=== PATIENT | male | born 1970 | race Caucasian/White ===

== ENCOUNTER 2022-09-30 17:40 | Inpatient (IN) | payer OTHER ==
[2022-09-30 18:10] VITALS: BMI 29.6
[2022-09-30] MEDS ORDERED: chlordiazePOXIDE HCL 25 MG CAPSULE PO PRN (19:37)
[2022-09-30] MEDS ORDERED: chlordiazePOXIDE HCL 25 MG CAPSULE PO ONE (19:37)
[2022-09-30] MEDS ORDERED: POLYETHYLENE GLYCOL (HEALTHYLAX) 3350 17 GM PACKET PO PRN (20:03)
[2022-09-30] MEDS ORDERED: MAG HYDROX/AL HYDROX/SIMETH 30 ML UNIT-DOSE CUP PO PRN (20:03)
[2022-09-30] MEDS ORDERED: NALOXONE HCL (KLOXXADO) 8 MG SPRAY NS PRN (20:03)
[2022-09-30] MEDS ORDERED: MELATONIN 5 MG TABLETS PO PRN (20:03)
[2022-09-30] MEDS ORDERED: BENZOCAINE/MENTHOL (CHLORASEPTIC ) LOZENGE MM PRN (20:03)
[2022-09-30] MEDS ORDERED: LOPERAMIDE HCL 2 MG CAPSULE PO PRN (20:03)
[2022-09-30] MEDS ORDERED: NALOXONE HCL 0.4 MG/ML VIAL IM PRN (20:03)
[2022-09-30] MEDS ORDERED: DICYCLOMINE HCL 10 MG CAPSULE PO PRN (20:03)
[2022-09-30] MEDS ORDERED: BISMUTH SUBSALICYLATE 524 MG/30 ML PO PRN (20:03)
[2022-09-30] MEDS ORDERED: MAGNESIUM HYDROX 2400MG/30ML ORAL SUSPENSION 30 ML CUP PO PRN (20:03)
[2022-09-30] MEDS ORDERED: IBUPROFEN 400 MG TABLET (FP) PO PRN (20:03)
[2022-09-30] MEDS ORDERED: P-EPHED 60MG/TRIPROLIDI 2.5MG TABLET PO PRN (20:03)
[2022-09-30] MEDS ORDERED: ACETAMINOPHEN 325 MG TABLET (FP) PO PRN (20:03)
[2022-09-30] MEDS ORDERED: BENZONATATE 200 MG CAPSULE PO PRN (20:03)
[2022-09-30] MEDS ORDERED: ONDANSETRON *ODT* 4 MG TABLET SL PRN (20:03)
[2022-09-30] MEDS ORDERED: IBUPROFEN 600 MG TABLET (FP) PO PRN (20:03)
[2022-09-30] MEDS ORDERED: guaiFENesin 600 MG TABLET.ER (FP) PO PRN (20:03)
[2022-09-30] MEDS ORDERED: chlordiazePOXIDE HCL 25 MG CAPSULE ONE (20:10)
[2022-09-30] MEDS ORDERED: hydrOXYzine PAMOATE 25 MG CAPSULE (FP) PO ONE (21:07)
[2022-09-30] MEDS: hydrOXYzine PAMOATE 25 MG CAPSULE (FP) PO PRN (21:09)
[2022-09-30] MEDS ORDERED: THIAMINE HCL 100 MG TABLET (FP) PO SCH (22:00)
[2022-09-30] MEDS: chlordiazePOXIDE HCL 25 MG CAPSULE PO SCH (22:20)
[2022-09-30] MEDS: levETIRAcetam 250 MG TABLET PO SCH (22:20)
[2022-09-30] MEDS: METHOCARBAMOL 500 MG TABLET PO PRN (22:20)
[2022-10-01] MEDS: chlordiazePOXIDE HCL 25 MG CAPSULE PO SCH ×2 (05:27→10:09)
[2022-10-01] MEDS ORDERED: PRENATAL VITAMINS W/ FOLIC ACID TABLET (FP) PO SCH (10:00)
[2022-10-01] MEDS: hydrOXYzine PAMOATE 25 MG CAPSULE (FP) PO PRN (10:08)
[2022-10-01] MEDS: levETIRAcetam 250 MG TABLET PO SCH (10:08)
[2022-10-01 11:55] LABS: HEMATOCRIT 38.4 % (35.4-49); HEMOGLOBIN 13.1 GM/dL (11.7-16.9); MCH 32.7 pg (25.7-33.7); MEAN CELL VOLUME 96.1 fl (80-96); MEAN PLT VOLUME 8.4 fl (7.5-11.1); PLATELET COUNT 63 10^3/uL (134-434); RBC 3.99 M/mm3 (4.00-5.60); RDW 15.7 % (11.9-15.9); WHITE BLOOD COUNT 2.9 K/mm3 (4.0-10.0)
[2022-10-01 11:56] LABS: POTASSIUM 3.2 mmol/L (3.5-5.1)
[2022-10-01] MEDS ORDERED: POTASSIUM CHLORIDE ORAL LIQUID 20 MEQ/15 ML PO ONE (11:57)
[2022-10-01 11:58] LABS: ALBUMIN 3.8 g/dl (3.4-5.0)
[2022-10-01 11:59] LABS: BLOOD UREA NITROGEN 9.5 mg/dL (7-18)
[2022-10-01 12:02] LABS: CREATININE 0.8 mg/dL (0.55-1.3)
[2022-10-01 12:03] LABS: TOT PROT 6.6 g/dl (6.4-8.2)
[2022-10-01 12:04] LABS: BILIRUBIN,TOTAL 1.9 mg/dL (0.2-1)
[2022-10-01] MEDS: METHOCARBAMOL 500 MG TABLET PO PRN (12:32)
[2022-10-01 12:49] VITALS: BP 124/60; PULSE 65; RESP 20; TEMP 97.7
[2022-10-01] MEDS ORDERED: POTASSIUM CHLORIDE ORAL LIQUID 20 MEQ/15 ML PO SCH (22:00)
[2022-10-02] MEDS ORDERED: chlordiazePOXIDE HCL 25 MG CAPSULE PO SCH (05:00)
[2022-10-03] MEDS ORDERED: chlordiazePOXIDE HCL 10 MG CAPSULE PO PRN
[2022-10-03] MEDS ORDERED: chlordiazePOXIDE HCL 10 MG CAPSULE PO SCH (05:00)
[2022-10-04] MEDS ORDERED: chlordiazePOXIDE HCL 10 MG CAPSULE PO SCH (05:00)
[2022-10-05] MEDS ORDERED: chlordiazePOXIDE HCL 10 MG CAPSULE PO ONE (05:00)
== END 2022-10-01 14:43 | disposition left against medical advice (07) | DRG 770 ==
LOC: YASAS 17:40 → Y3N 20:45
PROVIDERS: ADMIT Allergy & Immunology; ATTEND Surgery
PROC: HZ2ZZZZ Detoxification Services for Substance Abuse Treatment (ICD-10-PCS; principal; 2022-09-30)
DX: F10.230 Alcohol dependence with withdrawal, uncomplicated (principal); D69.6 Thrombocytopenia, unspecified; D72.819 Decreased white blood cell count, unspecified; E87.6 Hypokalemia; R74.8 Abnormal levels of other serum enzymes
CPT/HCPCS: 36415; 80053; 85027; 86780; 87635; 87811

== ENCOUNTER 2022-10-11 19:04 | Inpatient (IN) | payer OTHER ==
[2022-10-11 19:38] VITALS: BMI 29.9
[2022-10-11] MEDS ORDERED: guaiFENesin 600 MG TABLET.ER (FP) PO PRN (19:57)
[2022-10-11] MEDS ORDERED: BISMUTH SUBSALICYLATE 524 MG/30 ML PO PRN (19:57)
[2022-10-11] MEDS ORDERED: ONDANSETRON *ODT* 4 MG TABLET SL PRN (19:57)
[2022-10-11] MEDS ORDERED: ACETAMINOPHEN 325 MG TABLET (FP) PO PRN (19:57)
[2022-10-11] MEDS ORDERED: MAG HYDROX/AL HYDROX/SIMETH 30 ML UNIT-DOSE CUP PO PRN (19:57)
[2022-10-11] MEDS ORDERED: BENZOCAINE/MENTHOL (CHLORASEPTIC ) LOZENGE MM PRN (19:57)
[2022-10-11] MEDS ORDERED: DICYCLOMINE HCL 10 MG CAPSULE PO PRN (19:57)
[2022-10-11] MEDS ORDERED: IBUPROFEN 400 MG TABLET (FP) PO PRN (19:57)
[2022-10-11] MEDS ORDERED: BENZONATATE 200 MG CAPSULE PO PRN (19:57)
[2022-10-11] MEDS ORDERED: POLYETHYLENE GLYCOL (HEALTHYLAX) 3350 17 GM PACKET PO PRN (19:57)
[2022-10-11] MEDS ORDERED: MAGNESIUM HYDROX 2400MG/30ML ORAL SUSPENSION 30 ML CUP PO PRN (19:57)
[2022-10-11] MEDS ORDERED: P-EPHED 60MG/TRIPROLIDI 2.5MG TABLET PO PRN (19:57)
[2022-10-11] MEDS ORDERED: LOPERAMIDE HCL 2 MG CAPSULE PO PRN (19:57)
[2022-10-11] MEDS ORDERED: IBUPROFEN 600 MG TABLET (FP) PO PRN (19:57)
[2022-10-11] MEDS ORDERED: chlordiazePOXIDE HCL 25 MG CAPSULE PO ONE (19:59)
[2022-10-11] MEDS ORDERED: chlordiazePOXIDE HCL 25 MG CAPSULE ONE (20:14)
[2022-10-11] MEDS: hydrOXYzine PAMOATE 25 MG CAPSULE (FP) PO PRN (21:50)
[2022-10-11] MEDS: MELATONIN 5 MG TABLETS PO PRN (22:12)
[2022-10-11] MEDS: chlordiazePOXIDE HCL 25 MG CAPSULE PO SCH (22:12)
[2022-10-11] MEDS: THIAMINE HCL 100 MG TABLET (FP) PO SCH (22:12)
[2022-10-12] MEDS: chlordiazePOXIDE HCL 25 MG CAPSULE PO PRN ×3 (01:04→13:33)
[2022-10-12] MEDS: METHOCARBAMOL 500 MG TABLET PO PRN ×3 (01:05→22:16)
[2022-10-12] MEDS: chlordiazePOXIDE HCL 25 MG CAPSULE PO SCH ×4 (05:48→22:15)
[2022-10-12] MEDS: hydrOXYzine PAMOATE 25 MG CAPSULE (FP) PO PRN ×2 (08:24→17:09)
[2022-10-12] MEDS: PRENATAL VITAMINS W/ FOLIC ACID TABLET (FP) PO SCH (10:17)
[2022-10-12] MEDS ORDERED: cloNIDine HCL 0.1 MG TABLET PO ONE (21:30)
[2022-10-12] MEDS: MELATONIN 5 MG TABLETS PO PRN (22:15)
[2022-10-12] MEDS: THIAMINE HCL 100 MG TABLET (FP) PO SCH (22:15)
[2022-10-13] MEDS: chlordiazePOXIDE HCL 25 MG CAPSULE PO SCH ×4 (05:46→22:06)
[2022-10-13] MEDS: hydrOXYzine PAMOATE 25 MG CAPSULE (FP) PO PRN ×2 (05:47→22:05)
[2022-10-13] MEDS: METHOCARBAMOL 500 MG TABLET PO PRN ×2 (05:48→17:16)
[2022-10-13] MEDS: PRENATAL VITAMINS W/ FOLIC ACID TABLET (FP) PO SCH (10:27)
[2022-10-13] MEDS: MELATONIN 5 MG TABLETS PO PRN (22:05)
[2022-10-13] MEDS: THIAMINE HCL 100 MG TABLET (FP) PO SCH (22:05)
[2022-10-14] MEDS ORDERED: chlordiazePOXIDE HCL 10 MG CAPSULE PO PRN
[2022-10-14] MEDS: METHOCARBAMOL 500 MG TABLET PO PRN ×3 (01:38→17:18)
[2022-10-14] MEDS: chlordiazePOXIDE HCL 10 MG CAPSULE PO SCH ×4 (05:59→22:08)
[2022-10-14] MEDS: PRENATAL VITAMINS W/ FOLIC ACID TABLET (FP) PO SCH (10:23)
[2022-10-14] MEDS: hydrOXYzine PAMOATE 25 MG CAPSULE (FP) PO PRN (22:09)
[2022-10-14] MEDS: MELATONIN 5 MG TABLETS PO PRN (22:09)
[2022-10-14] MEDS: THIAMINE HCL 100 MG TABLET (FP) PO SCH (22:09)
[2022-10-15] MEDS: chlordiazePOXIDE HCL 10 MG CAPSULE PO SCH ×2 (05:37→17:51)
[2022-10-15] MEDS: METHOCARBAMOL 500 MG TABLET PO PRN ×2 (05:38→17:52)
[2022-10-15] MEDS: PRENATAL VITAMINS W/ FOLIC ACID TABLET (FP) PO SCH (10:10)
[2022-10-15] MEDS: MELATONIN 5 MG TABLETS PO PRN (22:09)
[2022-10-15] MEDS: THIAMINE HCL 100 MG TABLET (FP) PO SCH (22:09)
[2022-10-15] MEDS: hydrOXYzine PAMOATE 25 MG CAPSULE (FP) PO PRN (22:11)
[2022-10-16] MEDS ORDERED: chlordiazePOXIDE HCL 10 MG CAPSULE PO ONE (05:00)
[2022-10-16 06:25] VITALS: BP 108/60; PULSE 60; RESP 16; TEMP 973
== END 2022-10-16 06:55 | disposition home or self-care (01) | DRG 775 ==
LOC: YASAS 19:04 → Y3N 20:09
PROVIDERS: ADMIT Allergy & Immunology; ATTEND Surgery
PROC: HZ2ZZZZ Detoxification Services for Substance Abuse Treatment (ICD-10-PCS; principal; 2022-10-11)
DX: F10.230 Alcohol dependence with withdrawal, uncomplicated (principal); R03.0 Elevated blood-pressure reading, without diagnosis of hypertension
CPT/HCPCS: 36415; 80053; 83735; 84100; 85025; 99284-25

== ENCOUNTER 2023-06-02 17:20 | Inpatient (IN) | payer OTHER ==
[2023-06-02 17:52] VITALS: BMI 25.9
[2023-06-02] MEDS ORDERED: DICYCLOMINE HCL 10 MG CAPSULE PO PRN (19:04)
[2023-06-02] MEDS ORDERED: ACETAMINOPHEN 325 MG TABLET (FP) PO PRN (19:04)
[2023-06-02] MEDS ORDERED: NALOXONE HCL 0.4 MG/ML VIAL IM PRN (19:04)
[2023-06-02] MEDS ORDERED: BISMUTH SUBSALICYLATE 524 MG/30 ML PO PRN (19:04)
[2023-06-02] MEDS ORDERED: BENZOCAINE/MENTHOL (CHLORASEPTIC ) LOZENGE MM PRN (19:04)
[2023-06-02] MEDS ORDERED: LOPERAMIDE HCL 2 MG CAPSULE PO PRN (19:04)
[2023-06-02] MEDS ORDERED: BENZONATATE 200 MG CAPSULE PO PRN (19:04)
[2023-06-02] MEDS ORDERED: POLYETHYLENE GLYCOL (HEALTHYLAX) 3350 17 GM PACKET PO PRN (19:04)
[2023-06-02] MEDS ORDERED: NALOXONE HCL (KLOXXADO) 8 MG SPRAY NS PRN (19:04)
[2023-06-02] MEDS ORDERED: MAGNESIUM HYDROX 2400MG/30ML ORAL SUSPENSION 30 ML CUP PO PRN (19:04)
[2023-06-02] MEDS ORDERED: guaiFENesin 600 MG TABLET.ER (FP) PO PRN (19:04)
[2023-06-02] MEDS ORDERED: MAG HYDROX/AL HYDROX/SIMETH 30 ML UNIT-DOSE CUP PO PRN (19:04)
[2023-06-02] MEDS ORDERED: IBUPROFEN 400 MG TABLET (FP) PO PRN (19:04)
[2023-06-02] MEDS: LORazepam 2 MG/ML SDV VIAL IM ONE (19:46)
[2023-06-02] MEDS: LORazepam 1 MG TABLET PO PRN (20:20)
[2023-06-02] MEDS: THIAMINE HCL 100 MG TABLET (FP) PO SCH (22:20)
[2023-06-02] MEDS: LORazepam 2 MG TABLET PO SCH (22:20)
[2023-06-02] MEDS: MELATONIN 5 MG TABLETS PO SCH (22:22)
[2023-06-03] MEDS: hydrOXYzine PAMOATE 25 MG CAPSULE (FP) PO PRN (05:18)
[2023-06-03] MEDS: METHOCARBAMOL 500 MG TABLET PO PRN (07:52)
[2023-06-03] MEDS: chlordiazePOXIDE HCL 25 MG CAPSULE PO ONE (09:30)
[2023-06-03] MEDS: PRENATAL VITAMINS W/ FOLIC ACID TABLET (FP) PO SCH (09:30)
[2023-06-03 11:04] LABS: HEMOGLOBIN 14.2 GM/dL (11.7-16.9); MCH 32.4 pg (25.7-33.7); MEAN CELL VOLUME 98.4 fl (80-96); MEAN PLT VOLUME 8.1 fl (7.5-11.1); RBC 4.37 M/mm3 (4.00-5.60); RDW 16.1 % (11.9-15.9); WHITE BLOOD COUNT 3.5 K/mm3 (4.0-10.0)
[2023-06-03] MEDS: ONDANSETRON *ODT* 4 MG TABLET SL PRN (11:13)
[2023-06-03] MEDS: chlordiazePOXIDE HCL 25 MG CAPSULE PO SCH (11:45)
[2023-06-03 11:53] LABS: CHLORIDE 100 mmol/L (98-107); SODIUM 139 mmol/L (136-145)
[2023-06-03 11:57] LABS: CALCIUM 8.6 mg/dL (8.5-10.1)
[2023-06-03 11:58] LABS: BLOOD UREA NITROGEN 8.8 mg/dL (7-18); CO2 29 mmol/L (21-32); GLUCOSE,RANDOM 87 mg/dL (74-106)
[2023-06-03 11:59] LABS: SGPT/ALT 97 U/L (13-61)
[2023-06-03 12:00] LABS: CREATININE 0.9 mg/dL (0.55-1.3)
[2023-06-03] MEDS: levETIRAcetam 500 MG TABLET (FP) PO SCH (12:00)
[2023-06-03 12:01] LABS: BILIRUBIN,TOTAL 1.6 mg/dL (0.2-1); SGOT/AST 149 U/L (15-37); TOT PROT 7.1 g/dl (6.4-8.2)
[2023-06-03 12:02] LABS: ALK PHOS 79 U/L (45-117)
[2023-06-03 12:04] LABS: ANION GAP 9 mmol/L (4-13); POTASSIUM 2.9 mmol/L (3.5-5.1)
[2023-06-03] MEDS ORDERED: DICYCLOMINE HCL 10 MG CAPSULE PO PRN (12:29)
[2023-06-03] MEDS: POTASSIUM CHLORIDE ORAL LIQUID 20 MEQ/15 ML PO SCH (12:42)
[2023-06-03] MEDS: POTASSIUM CHLORIDE TABS 20 MEQ TABLET.ER (FP) PO SCH (12:45)
[2023-06-03 12:53] LABS: PLATELET COUNT 38 10^3/uL (134-434)
[2023-06-03] MEDS: IBUPROFEN 600 MG TABLET (FP) PO PRN (17:10)
[2023-06-03] MEDS: chlordiazePOXIDE HCL 25 MG CAPSULE PO PRN (19:45)
[2023-06-04] MEDS ORDERED: LORazepam 1 MG TABLET PO SCH (05:00)
[2023-06-05] MEDS ORDERED: LORazepam 0.5 MG TABLET PO PRN
[2023-06-05] MEDS ORDERED: LORazepam 0.5 MG TABLET PO SCH (05:00)
[2023-06-05] MEDS: chlordiazePOXIDE HCL 25 MG CAPSULE PO SCH (05:32)
[2023-06-05] MEDS: LACTULOSE 20 GM/30 ML UDC (FOR ORAL USE ONLY) PO SCH (13:32)
[2023-06-06] MEDS ORDERED: chlordiazePOXIDE HCL 10 MG CAPSULE PO PRN
[2023-06-06] MEDS ORDERED: LORazepam 0.5 MG TABLET PO ONE (05:00)
[2023-06-06] MEDS: chlordiazePOXIDE HCL 10 MG CAPSULE PO SCH (05:33)
[2023-06-06] MEDS: LORazepam 1 MG TABLET PO SCH (10:49)
[2023-06-06] MEDS: LORazepam 1 MG TABLET PO PRN (13:29)
[2023-06-07] MEDS ORDERED: chlordiazePOXIDE HCL 10 MG CAPSULE PO SCH (05:00)
[2023-06-07] MEDS: LORazepam 0.5 MG TABLET PO SCH (05:33)
[2023-06-08] MEDS ORDERED: chlordiazePOXIDE HCL 10 MG CAPSULE PO ONE (05:00)
[2023-06-08] MEDS: LORazepam 0.5 MG TABLET PO ONE (05:04)
[2023-06-08] MEDS: LACTULOSE 20 GM/30 ML UDC (FOR ORAL USE ONLY) PO SCH (10:32)
[2023-06-09 09:22] VITALS: BP 116/65; PULSE 66; RESP 18; TEMP 97.1
== END 2023-06-09 09:43 | disposition home or self-care (01) | DRG 775 ==
LOC: YASAS 17:20 → Y6N 19:32
PROVIDERS: ADMIT Allergy & Immunology; ATTEND Allergy & Immunology
PROC: HZ2ZZZZ Detoxification Services for Substance Abuse Treatment (ICD-10-PCS; principal; 2023-06-02)
DX: F10.230 Alcohol dependence with withdrawal, uncomplicated (principal); E72.20 Disorder of urea cycle metabolism, unspecified; D69.6 Thrombocytopenia, unspecified; E87.6 Hypokalemia; R74.8 Abnormal levels of other serum enzymes
CPT/HCPCS: 36415; 80053; 80307; 82140; 82248; 84132; 84450; 85027; 86780; 87635; Q0162